=== PATIENT | male | born 1945 ===

== ENCOUNTER 2018-08-09 06:16 | Day surgery (SDC) | payer OTHER, SELFPAY ==
[2018-07-30 10:26] VITALS: BMI 30.9
[2018-08-09] VITALS (26 sets, daily range): BP systolic 73–130; BP diastolic 46–82; PULSE 96–117; RESP 12–20; TEMP 36.2–37.3; O2SAT 90–98; BMI 30.9
--- NOTE | 2018-08-09 | DI.RAD.S_ITS ---
PROCEDURE: XR FOOT LT MIN 3V INDICATIONS: LEFT FOOT FUSION TECHNIQUE: 7 intraoperative fluoroscopic views of the foot were acquired. COMPARISON: None. FINDINGS: Intraoperative fluoroscopic images of left foot shows extensive fusion of the medial and lateral aspect of mid foot joints. IMPRESSION: Fluoroscopy guidance was provided for extensive mid foot fusion. Dictated by: Hamzah Palma M.D. on 08/09/2018 at 13:11 Approved by: Hamzah Palma M.D. on 08/09/2018 at 13:13
--- NOTE | 2018-08-09 07:08 | PM.PREOP ---
Pre-operative Note Interval Note History & Physical reviewed/Exam performed by Physician: Yes Changes to H&P: No
--- NOTE | 2018-08-09 07:28 | P.OP_ITS ---
Operative Date/Time/Diagnoses Date of procedure: 08/09/18 Time of procedure: 07:50 Pre-op diagnosis: 1. left charcot foot Post-op diagnosis: same Procedure & Clinicians Procedure: 1. Arthrodesis, talonavicular, naviculocuneiform left foot-bone grafting deformity correction and internal fixation 2. Arthrodesis calcaneal cuboid joint left foot -bone grafting internal fixation This procedure was performed with a 22 modifier-this was an extremely difficult and complex case requiring the expertise of a fellowship trained foot and ankle surgeon and required operative time twice as long as a standard foot fusion. 3. Plantar exostectomy 5th metatarsal base left foot Same procedure as scheduled: Yes Indications: Charcot neural arthropathy of the left foot. 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 the patient is 72-year-old male with diabetic Charcot arthropathy. Patient has an unstable pattern Charcot deformity with progressive collapse since his previous visits and a prominent medial navicular and plantar prominences with at risk skin for ulceration. The patient has recently gotten his hemoglobin A1c down to 7.8 from 9 and is now appropriate for operative fixation. has palpable pulses in his foot with the wrinkles present. patient is taking daily vitamin-D and calcium. The patient has been indicated for a CRUM Charcot foot reconstruction with medial column stabilization with medial column arthrodesis and lateral stabilization as well. discussed the use of bone grafting as well to help fixation in this high risk neuropathic patient. I discussed the risks and rationale for and prolonged cuff recovery associated with surgery. patient expressed understanding of all these issues including the risk of infection, nerve damage, wound dehiscence, nonunion, malunion, symptomatic hardware, over correction or under correction of the deformity, incomplete relief of pain, inability to return the patient's desired level of function, generalized dissatisfaction with the surgical procedure and outcome, deep venous thrombosis, pulmonary embolus, cardiopulmonary complications and . Patient understands the healing of bones and soft tissues will take approximately 3 months but full rehab group require 6-9 months. The patient also understands that is critical to elevate the leg above the heart for the 1st 2 weeks after surgery to control pain and swelling. patient was counseled no weight-bearing well out of the surgical leg for approximately 8-12 weeks or until the patient is instructed that it is safe to initiate weight-bearing. Site was signed in the office. Surgeon: Thalia Mcknight Textile Screen Printer: Mavis Cleaning Anesthesia Type: General and Local Operative Notes Findings: Essentially completely medial inferiorly dislocated navicular bone near extruded medially. additionally laterally there was instability of the a calcaneal cuboid joint. Additionally there is exploration over the 4th and 5th metatarsal bases as there was concern for subluxation with these on previous imaging however they were of well reduced intraoperatively. the 1st tarsometatarsal joint was noted to be stable on intraoperative testing. Therefore the medial column from the talus to medial cuneiform was fused. After extensive dissection and distraction the navicular was still unable to be completely reduced on the talus and due to the deformity decision was made to resect the navicular and used this for autograft to correct the deformity and span the medial column. Medial column was stabilized with a proximal medial column plate from the paragon 28 set and a combination of nonlocking and locking screws. Additionally a dorsal peanut plate was added to span the medial column dorsally. The calcaneocuboid joint was stabilized with a [place] a dog bone type plate with locking screws. This provided a correction and stability to the patient's deformity. The patient's equinus exam was checked again intr aoperatively and found to achieve 10? of dorsiflexion therefore a JAVIER was not completed. Closure Type: primary Specimen(s): none sent Tourniquet time (min): 130 Procedure in detail: The patient was seen in the preoperative holding area and the appropriate limb and side of surgery was marked. the patient was then brought to the operating room and positioned supine on the operative table. All bony prominences well padded. The contralateral leg was placed in an SCD. A well-padded thigh tourniquet was placed. patient was prepped and draped in the standard sterile fashion after a preoperative scrub with alcohol and chlorhexidine. formal time-out procedure was performed confirming the patient's side and site of surgery to the presence of informed consent and administration of appropriate prophylactic antibiotics. All were in agreement. Appropriate implants were present. Medial column stabilization: Incision was made medially from the tip of the medial malleolus along the medial border of the foot to the medial cuneiform. Dissected through skin and subcutaneous tissues and deep tissue. the suppressive and dissected from the neck of the talus medially over the navicular which was essentially extruded medially over the medial cuneiform. The 1st MTP joint was ranged intraoperatively and stable and also appeared concentric on CT scan so this was left out of the fusion. Care was taken to protect the tibialis anterior in the very distal part of the wound. after extensive dissection and the use of a distractor between the talus and medial cuneiform attempts were made to reduce the navicular back into place however as this was later band and for resection of the navicular and morselization into bone graft which was then placed allowing reduction between the talus bone graft and medial cuneiform to reduce the medial column. This was selected the joints were aligned and prepped. All remaining articular cartilage was removed with osteotomes followed by a using the bur and a 200 mm drill and an osteotome again to shingle the surfaces. This obtained good bleeding bone. the medial column was pinned in place and reduction was checked on under intraoperative fluoroscopy. Additional allograft of fibers were also used in the fusion sites. The paragon a left-side proximal medial column plate was selected and spanned nicely from the talus to the medial cuneiform bone. This was pinned in place checked under fluoroscopy and then fixed 1st with a combination of nonlocking screws to get it to bone and then locking screws. We then made an incision from the tip of the fibula as to the base of the 4th metatarsal and carried this through skin subcutaneous tissue. peroneal tendons were protected and we dissected through the deep fashion retinaculum. The lateral border of the calcaneus and the calcaneocuboid joint was identified. Suppressive dissection was carried out at the calcaneal cuboid joint and is prepared for her for fusion with an osteotome, 2 0 drill bur. Additionally dissection was carried distally to the base of the 4th metatarsal cuboid joint and this joint was inspected and found to be in adequate position therefore additional stabilization was not utilized at this joint. Additional autograft as well as allograft fibers were placed in the calcaneal cuboid joint and a 4 hole dog bone plate was selected and positioned and pinned in place then fixed with a combination of nonlocking screws seated down to bone and finally exchanged for locking screws. The distal screws in the calcaneal cuboid plate were eventually exchanged for locking screws using the variable angle drill to capture more cuboid bone. This was confirmed under fluoroscopy and provided excellent fixation. Additionally on the lateral image is noted the patient had a prominence of the 5th metatarsal base and this was also palpable on clinical exam both laterally and plantarly. Therefore the decision was made intraoperatively to do a plantar exostectomy of the base of the 5th metatarsal. Separate globular some border an incision was made along the base of the 5th metatarsal and careful dissection was taken down to the level of the bone subperiosteal dissection was completed and a T PS saw was used to plane the 5th metatarsal plantarly and then a bur used to smooth this area. This was evaluated on fluoroscopy and found to decompress the area very well on fluoroscopy and on clinical palpation exam. All wounds were then irrigated. note the tourniquet was used twice in a 2 hours session and then down for at least 45 minutes before being placed up for 1 more hour. Tourniquet was released again prior to final closing and hemostasis was achieved. The wounds were closed with deep 2 0 Vicryl suture and, 3 0 Vicryl suture, 4 0 Monocryl and 3 0 and 4 O nylon suture. all hardware was covered well. sterile dressings were placed with Xeroform gauze Webril bulky [place] cotton and a posterior splint. The patient was woken from anesthesia and taken to the postoperative unit in good condition. There were no known immediate complications from this procedure. The patient did have his antibiotics appropriately redosed at the 4 hour brook in surgery. Complications: none Condition: stable Disposition: observation Plan for aftercare: Patient will be admitted to the hospital postoperatively for observation and pain control. The patient had a prolonged anesthesia or 5 hours, Irene will be monitored afterwards. Patient will be nonweightbearing on the left lower extremity. Anticipate home discharge tomorrow morning. Patient will start aspirin 325 mg daily for DVT prophylaxis on postop day 1. patient will have hydrocodone for pain medication. Patient will avoid other anti- inflammatories during the initial healing. Patient will take vitamin-D and calcium. Patient will follow up in approximately 1 week in clinic for a suture check and transition to cast. Anticipate sutures remaining at least 3 weeks. Patient was strictly elevate above the heart level for the 1st 2 weeks after surgery. prescriptions for [place], aspirin and Colace are on the patient's chart.
[2018-08-09] MEDS: CEFAZOLIN 2 GM/100 ML FROZ.PIGGY IV ×3 (08:01→20:55)
--- NOTE | 2018-08-09 08:30 | SUR.OPER ---
Supine on padded OR bed, head on pillow, arms secured on padded arm boards at <90 degrees abduction, legs uncrossed, safety belt at thigh, tape over blanket over lower legs.
[2018-08-09] MEDS: BUPIVACAINE 0.25% (PF) VIAL 30 ML INJ (08:42)
[2018-08-09] MEDS: THROMBIN (RECOMBINANT) 5,000 UNIT VIAL 5000 UNIT TOP (09:55)
[2018-08-09] MEDS: LACTATED RINGERS 1,000 ML 42 ML IV (11:13)
[2018-08-09] MEDS: ONDANSETRON 4 MG/2 ML INJ IV ×3 (13:47→16:42)
--- NOTE | 2018-08-09 13:49 | SUR.PHASEI ---
Pt. had small bile emesis while supine @ 30 degrees upright, medicated with ondansetron IV.
[2018-08-09] MEDS: METOCLOPRAMIDE 10 MG/2 ML INJ IV (14:06)
--- NOTE | 2018-08-09 14:06 | SUR.PHASEI ---
Pt. again had emesis, green bile in color, medicated with reglan will continue to monitor effects
--- NOTE | 2018-08-09 14:21 | SUR.PHASEI ---
addendum to 1406 note, + bowel sounds all four quads.
--- NOTE | 2018-08-09 14:26 | SUR.PHASEI ---
pt. states nausea is better, feeling comfortable.
--- NOTE | 2018-08-09 14:36 | SUR.PHASEI ---
pt having more emesis at this time, approx. 50 cc bile color. Medicated with 4 mg Zofran IV (repeat dose)
--- NOTE | 2018-08-09 14:44 | SUR.PHASEI ---
checked blood glucose at this time 202
[2018-08-09] MEDS: INSULIN REGULAR 100 UNIT/ML 3 ML VIAL SUBCUT (15:07)
[2018-08-09] MEDS: DOCUSATE 100 MG CAPSULE PO (20:55)
[2018-08-09] MEDS: LOVASTATIN 20 MG TABLET 80 MG PO (20:56)
[2018-08-10 04:38] VITALS: BP 126/68; PULSE 121; RESP 20; TEMP 36.8; O2SAT 95
[2018-08-10] MEDS: CEFAZOLIN 2 GM/100 ML FROZ.PIGGY IV (04:57)
[2018-08-10 07:30] VITALS: BP 101/56; PULSE 108; RESP 16; TEMP 37.2; O2SAT 92
[2018-08-10] MEDS: ASPIRIN EC 325 MG TABLET PO (08:27)
[2018-08-10] MEDS: LISINOPRIL 20 MG TABLET PO (08:29)
[2018-08-10] MEDS: DOCUSATE 100 MG CAPSULE PO (08:29)
[2018-08-10] MEDS: INSULIN ASPART 100 UNIT/ML INSULN PEN 15 UNIT SUBCUT (08:30)
[2018-08-10] MEDS: METFORMIN HCL 500 MG TABLET PO (08:32)
--- NOTE | 2018-08-10 10:54 | PC.NURSE ---
Pt is comfortable, he has a bulky dressing to his l. extremity with a splint in place. There is a small amount of drainage and the dressing is damp. JUAN LUIS Lott changed pts dressing and rewrapped with александр bandage. He tolerated dressing change well. BS this am 201 and pts insulin given. Pt tolerated well. Ate breakfast and then about an hour later complained of feelings whoozy, checked bs and 241. Pt is resting now and denies pain.
--- NOTE | 2018-08-10 10:58 | P.DS_ITS ---
History of Present Illness Date Patient Seen: 08/10/18 Time Patient Seen: 10:57 Chief complaint: [id number] Narrative: Patient is POD#1 s/p arthrodesis, talonavicular, naviculocuneiform left foot-bone grafting deformity correction and internal fixation and arthrodesis calcaneal cuboid joint left foot -bone grafting internal fixation with Dr. Mcknight. He reports minimal pain in the foot, partially due to his baseline lack of sensation in the foot secondary to diabetic neuropathy. He reports some leakage through the dressing last night. He denies any fevers, chills, chest pain, or shortness of breath. Discharge Providers Discharge Date: 08/10/18 Primary care physician: Moose Magana MD Consults: 08/09/18 06:00 Consult to Anesthesiology Routine Comment: Consulting Provider: Anesthesiologist Reason for consultation: Post operative pain managment Has provider been notified: No Discharge provider: Jennifer Acuna PA-C Summary Discharge Diagnosis: s/p left arthrodesis, talonavicular, naviculocuneiform left foot with bone grafting deformity correction and internal fixation and arthrodesis calcaneal cuboid joint left foot with bone grafting internal fixation Hospital Course: Findings: Essentially completely medial inferiorly dislocated navicular bone near extruded medially. additionally laterally there was instability of the a calcaneal cuboid joint. Additionally there is exploration over the 4th and 5th metatarsal bases as there was concern for subluxation with these on previous imaging however they were of well reduced intraoperatively. the 1st tarsometatarsal joint was noted to be stable on intraoperative testing. Therefore the medial column from the talus to medial cuneiform was fused. After extensive dissection and distraction the navicular was still unable to be completely reduced on the talus and due to the deformity decision was made to resect the navicular and used this for autograft to correct the deformity and span the medial column. Medial column was stabilized with a proximal medial column plate from the paragon 28 set and a combination of nonlocking and locking screws. Additionally a dorsal peanut plate was added to span the medial column dorsally. The calcaneocuboid joint was stabilized with a [place] a dog bone type plate with locking screws. This provided a correction and stability to the patient's deformity. The patient's equinus exam was checked again intraoperatively and found to achieve 10? of dorsiflexion therefore a JAVIER was not completed. Closure Type: primary Specimen(s): none sent Tourniquet time (min): 130 Procedure in detail: The patient was seen in the preoperative holding area and the appropriate limb and side of surgery was marked. the patient was then brought to the operating room and positioned supine on the operative table. All bony prominences well padded. The contralateral leg was placed in an SCD. A well-padded thigh tourniquet was placed. patient was prepped and draped in the standard sterile fashion after a preoperative scrub with alcohol and chlorhexidine. formal time-out procedure was performed confirming the patient's side and site of surgery to the presence of informed consent and administration of appropriate prophylactic antibiotics. All were in agreement. Appropriate implants were present. Medial column stabilization: Incision was made medially from the tip of the medial malleolus along the medial border of the foot to the medial cuneiform. Dissected through skin and subcutaneous tissues and deep tissue. the suppressive and dissected from the neck of the talus medially over the navicular which was essentially extruded medially over the medial cuneiform. The 1st MTP joint was ranged intraoperatively and stable and also appeared concentric on CT scan so this was left out of the fusion. Care was taken to protect the tibialis anterior in the very distal part of the wound. after extensive dissection and the use of a distractor between the talus and medial cuneiform attempts were made to reduce the navicular back into place however as this was later band and for resection of the navicular and morselization into bone graft which was then placed allowing reduction between the talus bone graft and medial cuneiform to reduce the medial column. This was selected the joints were aligned and prepped. All remaining articular cartilage was removed with osteotomes followed by a using the bur and a 200 mm drill and an osteotome again to shingle the surfaces. This obtained good bleeding bone. the medial column was pinned in place and reduction was checked on under intraoperative fluoroscopy. Additional allograft of fibers were also used in the fusion sites. The paragon a left-side proximal medial column plate was selected and spanned nicely from the talus to the medial cuneiform bone. This was pinned in place checked under fluoroscopy and then fixed 1st with a combination of nonlocking screws to get it to bone and then locking screws. We then made an incision from the tip of the fibula as to the base of the 4th metatarsal and carried this through skin subcutaneous tissue. peroneal tendons were protected and we dissected through the deep fashion retinaculum. The lateral border of the calcaneus and the calcaneocuboid joint was identified. Suppressive dissection was carried out at the calcaneal cuboid joint and is prepared for her for fusion with an osteotome, 2 0 drill bur. Additionally dissection was carried distally to the base of the 4th metatarsal cuboid joint and this joint was inspected and found to be in adequate position therefore additional stabilization was not utilized at this joint. Additional autograft as well as allograft fibers were placed in the calcaneal cuboid joint and a 4 hole dog bone plate was selected and positioned and pinned in place then fixed with a combination of nonlocking screws seated down to bone and finally exchanged for locking screws. The distal screws in the calcaneal cuboid plate were eventually exchanged for locking screws using the variable angle drill to capture more cuboid bone. This was confirmed under fluoroscopy and provided excellent fixation. Additionally on the lateral image is noted the patient had a prominence of the 5th metatarsal base and this was also palpable on clinical exam both laterally and plantarly. Therefore the decision was made intraoperatively to do a plantar exostectomy of the base of the 5th metatarsal. Separate globular some border an incision was made along the base of the 5th metatarsal and careful dissection was taken down to the level of the bone subperiosteal dissection was completed and a T PS saw was used to plane the 5th metatarsal plantarly and then a bur used to smooth this area. This was evaluated on fluoroscopy and found to decompress the area very well on fluoroscopy and on clinical palpation exam. All wounds were then irrigated. note the tourniquet was used twice in a 2 hours session and then down for at least 45 minutes before being placed up for 1 more hour. Tourniquet was released again prior to final closing and hemostasis was achieved. The wounds were closed with deep 2 0 Vicryl suture and, 3 0 Vicryl suture, 4 0 Monocryl and 3 0 and 4 O nylon suture. all hardware was covered well. sterile dressings were placed with Xeroform gauze Webril bulky [place] cotton and a posterior splint. The patient was woken from anesthesia and taken to the postoperative unit in good condition. There were no known immediate complications from this procedure. The patient did have his antibiotics appropriately redosed at the 4 hour brook in surgery. Complications: none Condition: stable Disposition: observation Plan for aftercare: Patient will be admitted to the hospital postoperatively for observation and pain control. The patient had a prolonged anesthesia or 5 hours, Irene will be monitored afterwards. Patient will be nonweightbearing on the left lower extremity. Anticipate home discharge tomorrow morning. Patient will start aspirin 325 mg daily for DVT prophylaxis on postop day 1. patient will have hydrocodone for pain medication. Patient will avoid other anti-i nflammatories during the initial healing. Patient will take vitamin-D and calcium. Patient will follow up in approximately 1 week in clinic for a suture check and transition to cast. Anticipate sutures remaining at least 3 weeks. Patient was strictly elevate above the heart level for the 1st 2 weeks after surgery. prescriptions for [place], aspirin and Colace are on the patient's chart. Since returning to the floor patient has had minimal pain. He had some minimal leakage through the dressing overnight so partially dried dressing was replaced this morning. He has adequate help at home in the post op period. Instructions for cast care were reviewed along with weight bearing status and elevation of the foot. Status at Discharge Cognitive/behavioral status at discharge: oriented Functional status at discharge: uses cane/walker (walker or crutches) Overall status at discharge: patient is progressing back to baseline Exam Vital Signs (past 8 hours): - 08/10/18 04:38 08/10/18 07:30 Temperature 98.3 F 99.0 F Pulse Rate 121 H 108 H Respiratory Rate 20 16 Blood Pressure 126/68 101/56 L Pulse Oximetry 95 92 Oxygen Delivery Method Room Air Oxygen Flow Rate 2 Narrative Exam Narrative: Pleasant 72 year old male resting comfortably in bed. Extrem Other: Cast and dressing in place over left foot partially wet over the heel, wet dressing replaced. Minimal sensation in the toes consistent with patient's baseline. Good capillary refill and color of the toes. Able to dorsiflex/plantar flex toes. Discharge Plan Discharge Plan Patient Disposition: Home Discharge Med Rec/Prescriptions Prescriptions: New docusate sodium [Colace] 100 mg capsule 100 mg PO BID Qty: 30 RF: 1 hydrocodone-acetaminophen [[place]] 5-325 mg tablet 1 tab PO Q4H PRN (Reason: pain) Qty: 42 RF: 0 Continued fluticasone propionate 50 mcg/actuation Blister With Device 2 inh INHALATION DAILY RF: 0 lisinopril 20 mg Tablet 20 mg PO DAILY RF: 0 lovastatin 40 mg Tablet 80 mg PO BEDTIME RF: 0 metformin 1,000 mg Tablet 500 mg PO BID RF: 0 Humalog KwikPen Insulin 100 unit/mL Insulin Pen 15 unit SUBCUT TID RF: 0 Tresiba U-100 Insulin 100 unit/mL Solution 44 unit SUBCUT DAILY RF: 0 Follow up/Referrals: Moose Magana MD [Primary Care Provider] - Discharge Orders: Discharge (Order); Ordered 08/10/18 Ordered By: Jennifer Acuna Provider Discharge Instructions Diet: Diet as Tolerated and Carb-consistent/Diabetic Activity: No weight bearing on the left foot Other treatments: At-Home Instructions - Dr. Mcknight Surgery: charcot foot reconstruction Cast/Splint/Dressing Care Instructions 1) Keep cast/dressing clean and dry. 2) May bathe - but cast/dressing must remain dry. 3) Should the cast become wet, you need to come into emergency department or call your physician's clinic immediately for cast removal and replacement. Moisture can cause skin breakdown and lead to infection if left untreated. 4) Do not stick any sharp object down the cast to itch, as this can cause scrapes/cuts/punctures which can lead to infection. 6) Observe for increasing pain in the extremity with the cast, finger/toe-tips turning blue/purple, or numbness and tingling in your toes/fingers. Should any of these symptoms arise, you need to be seen immediately for evaluation of swelling and increasing compartment pressures within your affected extremity. 7) Keep your affected extremity elevated - Toes Above your Nose? - This is singh in the first two weeks after surgery to minimize swelling. 8) You may ice your extremity, being careful to prevent melting ice from saturating into the splint/cast. Activity No heavy lifting greater than 10 pounds. No [address] while on narcotic pain medication. Do not get your dressing/cast/splint wet! You must remain non-weight bearing on your operative extremity. Use crutches or a walker for ambulation. No driving until you are otherwise instructed by your physician. This will be addressed at your first follow-up appointment. Discharge Pain Medications You will be given a prescription for pain medication. You should start taking this the same day after your surgery. Wean off as tolerated. Do not wait to take the pain medication until the pain is severe, as it will be difficult to catch up once this occurs. The pain medication usually reaches its full effect ~1 hour after ingesting. If you have been sent home on Colace, this medication should be taken until you are off all narcotic (i.e. Vicodin, Percocet, Oxycodone, etc) pain medications, to prevent constipation. You may also obtain this or another stool softener over the counter to prevent or alleviate constipation. Percocet or Vicodin have Tylenol in their ingredient lists. You must be careful not to exceed 3,000mg (3 grams) of Tylenol, from all sources, within a single 24-hr period. This means that you may not take more than 10 pills within a 24- hr period. Do NOT take Regular or Extra Strength Tylenol when taking your Percocet or Vicodin medications. -Some common side effects of the narcotic pain medications (Percocet, Oxycodone, Vicodin, etc.) include nausea and itching. Benadryl is a great over the counter medication that helps calm your stomach, decreases your anxiety levels, and mini mizes the itching. You can easily purchase this at your local pharmacy as an flyo-bio-nksmhys medication. Please abide by the instructions as printed on the bottle. If your nausea persists, make sure to take small amounts of crackers or other transportation solutions manager foods. Follow-Up/Emergency Contacts Please call for an appointment in either [place] or [place], if one has not been scheduled. Follow up 1 week after surgery. [phone] Contact the office if you have any of the following: ? Painful swelling or numbness ? Unrelenting pain ? Fever (over 101?- it is normal to have a low grade fever for the first day or two following surgery) or chills ? Redness around the incisions ? Color changes ? Continuous bleeding or drainage from the incision (a small amount is expected) ? Excessive nausea or vomiting ? Difficulty breathing If you have an emergency that requires immediate attention, proceed to the nearest emergency room. Blood Clot Prophylaxis You will need to complete a total 6-week (42 days) course of Aspirin (325 mg daily) after surgery, to minimize the risk of blood clots following surgery. You may alternatively purchase or use jmxj-gsg-ulvrdop generic equivalent Aspirin. If you already have ?baby? Aspirin (81mg) at home, you can take 4 ?baby? Aspirin to total 324mg for the equivalent dose. Pain Medications: It is the policy of [facility] that narcotic medications will only be refilled during office hours. Additionally, due to the alarming rate of narcotic pain medication abuse/dependence, it has become necessary for physician pract ices to closely manage patient use of prescription narcotic pain relievers, such as Vicodin ([place]), Percocet, and Oxycodone products. Narcotic pain management in the postoperative period may not exceed 6 weeks. If narcotic pain management is required beyond 90 days, then a referral to a Chronic Pain Specialist will be made. If a request for a medication prescription has been made, the physician must review your chart prior to authorizing the request. Please be patient with office staff. If you call during patient hours, your call may not be returned until the end of the day. Dr. Thalia Mcknight [address] [email or web address] Skin/Wound/Dressing Care Report to your healthcare provider any signs of infection, such as:: chills, fever, night sweats, increased pain, unusual drainage and unusual redness Discharge Data Primary Care Provider: Moose Magana Attending Provider: Thalia Mcknight
[2018-08-10 11:15] VITALS: BP 105/53; PULSE 93; RESP 114; TEMP 36.7; O2SAT 93
--- NOTE | 2018-08-10 11:26 | CM.DANOTE ---
Addendum entered by Loli Muhammad R.N. 08/10/18 11:57: Patient will be discharged home today. He will be following up with Dr. Garcia post op visit. Original Note: DCP: Case received, EMR reviewed and met with patient. Introduced self and role. DCP template completed with information currently available. Patient is a 72 year old male who admitted yesterday to the care of the surgical team. PCP: Dr. Magana. Payer: confirmed: [employer]. Patient had surgical procedure to his left foot. Patient holds diagnosis of Left Charot Foot. He is a diabetic type 2, and has history of neuropathy. Met briefly with patient. He lives in [place] with his , Alice. He has been using a scooter to get around prior to surgery, due to chronic issues with his foot. He is alert and oriented, and has supportive at home. 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 P: DCP to follow closely. To be determined if patient may need any type of wound care at discharge, or if he will need to go to wound clinic. Loli Muhammad RN/Fish Warden
== END 2018-08-10 14:05 | disposition home or self-care (01) ==
LOC: OR 07:26 → AC 14:01
PROVIDERS: Admitting Provider Anesthesiology; PCP Family Medicine; Visit Provider Orthopaedic Surgery Foot and Ankle Surgery
PROC: (CPT 28730; principal; 2018-08-09 07:45)
DX: E11.610 Type 2 diabetes mellitus with diabetic neuropathic arthropathy (principal); E11.42 Type 2 diabetes mellitus with diabetic polyneuropathy; Z79.4 Long term (current) use of insulin; M19.90 Unspecified osteoarthritis, unspecified site
CPT/HCPCS: 28730; 28104; 73630; 76000; 82962; 94760; J0690; J1170; J2405; J2704; J2765

== ENCOUNTER → 2019-12-02 11:11 | Outpatient (CLI) | payer OTHER, SELFPAY ==
[2018-08-09 15:30] VITALS: BMI 30.9
[2019-12-03 23:21] LABS: COVID19 Sendout Not Detected (Not Detect)
== END ==
PROVIDERS: PCP Family Medicine; Visit Provider Physician Assistant
DX: Z01.812 Encounter for preprocedural laboratory examination (principal)
CPT/HCPCS: 87635

== ENCOUNTER 2019-12-05 14:00 | Day surgery (SDC) | payer OTHER, SELFPAY ==
[2018-08-09 15:30] VITALS: BMI 30.9
[2019-12-01 15:07] VITALS: BMI 32.7
[2019-12-05 15:00] VITALS: BP 111/77; PULSE 101; RESP 16; TEMP 36.7; O2SAT 97; BMI 33.5
[2019-12-05] MEDS: LACTATED RINGERS 1,000 ML 42 ML IV (15:20)
--- NOTE | 2019-12-05 16:00 | PM.PREOP ---
Pre-operative Note COVID-19 COVID-19 status: Negative Result date/Date tested (Pos, Neg/Pending): 12/02/19 Interval Note History & Physical reviewed/Exam performed by Physician: Yes Changes to H&P: No
[2019-12-05] MEDS: CEFAZOLIN 2 GM/100 ML FROZ.PIGGY IV (16:14)
--- NOTE | 2019-12-05 16:15 | PM.OP.1 ---
Operative Date/Time/Diagnoses Date of procedure: 12/05/19 Time of procedure: 16:15 Pre-op diagnosis: Charcot arthropathy diabetic e11.610 Diabetic polyneuropathy S of CAD with type 2 diabetes E11.42 Plantar prominence. Diabetic foot ulcer no bone involvement Post-op diagnosis: same Procedure & Clinicians Procedure: Excision bone cuboid left CPT code 32762 Excision bone fragment left 5th metatarsal bone CPT code 48400 Same procedure as scheduled: Yes Indications: Patient is a 74-year-old male with a history of diabetes and Charcot arthropathy of the left foot. 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 He developed a blister and partial-thickness ulceration of the plantar foot. He has a lateral plantar prominence. He has no signs of infection. 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 The calcaneal cuboid joint appears well-healed. We discussed options for offloading or revision of the nonunions or limited plantar exostectomy. Patient would like to undergo an limited exostectomy now we can heal this as the well as the ulcer the same time. Postoperatively he will get molded for a little shell tribe boot. The risks and benefits of the procedure have been discussed with the patient even opportunity to ask questions. The risks of surgery include but are not limited to infection, malunion, nonunion, persistence of pain need for additional procedures,, damage to nerves and blood vessels, posttraumatic arthritis, DVT, PE, cardiopulmonary complications and . The patient expressed a thorough understanding of the risks and benefits of surgery and has elected to proceed. Consent was signed in the office. Surgeon: Thalia Mcknight Click Yes if Unassisted: Yes Anesthesia Type: General and Local Operative Notes Findings: Plantar exostectomy involving the cuboid and 5th metatarsal base. A superficial ulcer plantar foot skin intact today. No erythema no drainage no signs or symptoms of infection. Lateral border of foot incision was made the plantar forms was isolated and resected this wound was irrigated and closed. Closure Type: primary Specimen(s): none sent Prosthetic devices, grafts, tissues, transplants, or devices: None Estimated Blood Loss (mL): 10 Blood products transfused: none Tourniquet time (min): 39 Procedure in detail: Patient was seen in the preoperative area the site of surgery was marked informed consent confirmed. The patient was then brought back to the operating room by the anesthesia team. He was positioned supine on the operative table with an ipsilateral hip bump. Well-padded thigh tourniquet was placed. An SCD was placed on the contralateral lower extremity. Anesthesia was administered. The left lower extremities prepped and draped in standard sterile fashion. A formal time-out procedure was performed confirming the patient's side and site of surgery administration of preoperative antibiotics. Informed consent was present. All were in agreement. Attention turned to the left lower extremity. The mini C-arm was brought in and the area of the plantar lateral prominence was marked out on the skin. Next the Esmarch was utilized for exsanguination the tourniquet elevated to 250 mm of mercury and stayed there for approximately 39 minutes. 6 cm longitudinal incision was made at the plantar lateral border of the foot. Corresponding to the area of the lateral plantar cuboid prominence. Was dissected down through the skin and subcutaneous tissues. Bovie cautery was used for hemostasis. The plantar prominence was defined this involved majority of the plantar cuboid as well as the most lateral plantar osteophytes off the 5th metatarsal base. The planned resection was marked with 2 K-wires. Next the tibia saw was used to perform the exostectomy. And the prominence was removed. The power rasp was used to plane the area. Digital palpation was used to check for rough edges or residual prominence. This was noted to decompress the area of the plantar callus very well. Once I was satisfied with this procedure the wound was irrigated. The tourniquet was released. Hemostasis was achieved. Final fluoroscopic images were obtained showing the plantar lateral resection. The other previously known retained and hardware was present as well as the broken hardware at the talonavicular joint. Wound was closed with 2 O Vicryl and 2 O and 3 O nylon suture. A sterile dressing with Xeroform gauze Webril was placed and a stirrup splint. Patient was woken from anesthesia and taken to recovery room in good condition. There no immediate complications from this procedure. All counts were correct Complications: none Post-operative Condition: stable Disposition: PACU Plan for aftercare: Nonweightbearing left lower extremity. Will follow up in approximately 2 weeks. Sutures will remain in 2-3 weeks. Once sutures removed and will get molded for a little shell tribe boot.
--- NOTE | 2019-12-05 16:34 | SUR.OPER ---
Supine on padded OR bed, head on pillow, arms secured on padded arm boards at <90 degrees abduction, legs uncrossed, safety belt at thigh, tape over blanket over lower right leg, left leg draped free with bump under calf and buttock.
[2019-12-05] MEDS: BUPIVACAINE 0.25% W/ EPI 30 ML VIAL INJ (16:46)
[2019-12-05 17:25] VITALS: BP 87/54; PULSE 84; RESP 13; TEMP 36.7; O2SAT 94
[2019-12-05 17:30] VITALS: BP 98/62; PULSE 91; RESP 10; O2SAT 96
[2019-12-05 17:35] VITALS: BP 102/75; PULSE 84; RESP 18; O2SAT 96
[2019-12-05 17:45] VITALS: BP 104/75; PULSE 83; RESP 12; O2SAT 98
[2019-12-05 17:47] VITALS: BP 130/87; PULSE 85; RESP 10; O2SAT 97
[2019-12-05] MEDS: ONDANSETRON 4 MG ODT SL (18:18)
--- NOTE | 2019-12-05 18:20 | SUR.PHASEII ---
pt had episode of emesis at discharge- contacted anesthesia and pt was given zofran sl. denied nausea on discharge
== END 2019-12-05 18:20 | disposition home or self-care (01) ==
PROVIDERS: PCP Family Medicine; Referring Provider Orthopaedic Surgery Foot and Ankle Surgery; Visit Provider Orthopaedic Surgery Foot and Ankle Surgery
PROC: (CPT 28122; principal; 2019-12-05 15:45)
DX: E11.610 Type 2 diabetes mellitus with diabetic neuropathic arthropathy (principal); E11.42 Type 2 diabetes mellitus with diabetic polyneuropathy; E11.621 Type 2 diabetes mellitus with foot ulcer; L97.428 Non-pressure chronic ulcer of left heel and midfoot with other specified severity; Z79.4 Long term (current) use of insulin; I25.10 Atherosclerotic heart disease of native coronary artery without angina pectoris
CPT/HCPCS: 28122; J0690; J1100; J2250; J2405; J2704; J3010